=== PATIENT | male | born 2005 | race Caucasian/White ===

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

== ENCOUNTER → 2023-01-04 15:26 | Outpatient (BNVA) | payer OTHER, SELFPAY | PROVIDERS: Visit Provider Psychiatry & Neurology Psychiatry | DX: F20.81 Schizophreniform disorder (principal); Z79.899 Other long term (current) drug therapy | CPT/HCPCS: 85007; 85027 ==

== ENCOUNTER 2023-01-22 06:00 | Outpatient (RCR) | payer MEDICAID, SELFPAY | END 2023-02-20 23:59 | disposition home or self-care (01) | LOC: SST 06:00 | DX: F80.9 Developmental disorder of speech and language, unspecified (principal) | CPT/HCPCS: 92507 ==

== ENCOUNTER → 2023-02-09 08:45 | Outpatient (BNVA) | payer OTHER, SELFPAY | PROVIDERS: Visit Provider Psychiatry & Neurology Psychiatry | DX: F20.81 Schizophreniform disorder (principal); Z79.899 Other long term (current) drug therapy | CPT/HCPCS: 85007; 85027 ==

== ENCOUNTER 2023-02-21 06:00 | Outpatient (RCR) | payer MEDICAID, SELFPAY | END 2023-03-09 23:59 | disposition home or self-care (01) | LOC: SST 06:00 | PROVIDERS: PCP Family Medicine | DX: F84.0 Autistic disorder (principal) | CPT/HCPCS: 92507 ==

== ENCOUNTER → 2023-03-07 11:23 | Outpatient (BNVA) | payer MEDICAID, SELFPAY | PROVIDERS: PCP Family Medicine; Visit Provider Psychiatry & Neurology Psychiatry | DX: F20.81 Schizophreniform disorder (principal); Z79.899 Other long term (current) drug therapy | CPT/HCPCS: 85007; 85027 ==

== ENCOUNTER → 2023-04-07 10:08 | Outpatient (BNVA) | payer MEDICAID, SELFPAY | PROVIDERS: PCP Family Medicine; Visit Provider Psychiatry & Neurology Psychiatry | DX: F20.81 Schizophreniform disorder (principal); Z79.899 Other long term (current) drug therapy | CPT/HCPCS: 85007; 85027 ==

== ENCOUNTER → 2023-05-09 10:39 | Outpatient (BNVA) | payer MEDICAID, SELFPAY | PROVIDERS: PCP Family Medicine; Visit Provider Psychiatry & Neurology Psychiatry | DX: F20.81 Schizophreniform disorder (principal); Z79.899 Other long term (current) drug therapy | CPT/HCPCS: 85007; 85027 ==

== ENCOUNTER → 2023-06-14 10:04 | Outpatient (BNVA) | payer OTHER, SELFPAY | PROVIDERS: PCP Family Medicine; Visit Provider Psychiatry & Neurology Psychiatry | DX: F20.81 Schizophreniform disorder (principal); Z79.899 Other long term (current) drug therapy; F84.0 Autistic disorder; F79 Unspecified intellectual disabilities; G47.33 Obstructive sleep apnea (adult) (pediatric); F90.2 Attention-deficit hyperactivity disorder, combined type; F98.0 Enuresis not due to a substance or known physiological condition | CPT/HCPCS: 85007; 85027 ==

== ENCOUNTER → 2023-07-11 14:28 | Outpatient (BNVA) | payer OTHER, SELFPAY | PROVIDERS: PCP Family Medicine; Visit Provider Psychiatry & Neurology Psychiatry | DX: F20.81 Schizophreniform disorder (principal); Z79.899 Other long term (current) drug therapy | CPT/HCPCS: 85007; 85027 ==

== ENCOUNTER → 2023-08-15 11:17 | Outpatient (BNVA) | payer OTHER, SELFPAY | PROVIDERS: PCP Family Medicine; Visit Provider Psychiatry & Neurology Psychiatry | DX: F20.81 Schizophreniform disorder (principal); Z79.899 Other long term (current) drug therapy | CPT/HCPCS: 85007; 85027 ==

== ENCOUNTER → 2023-09-13 13:29 | Outpatient (BNVA) | payer OTHER, SELFPAY | PROVIDERS: PCP Family Medicine; Visit Provider Psychiatry & Neurology Psychiatry | DX: Z79.899 Other long term (current) drug therapy (principal); F98.0 Enuresis not due to a substance or known physiological condition; F84.0 Autistic disorder; F20.81 Schizophreniform disorder; F79 Unspecified intellectual disabilities; G47.33 Obstructive sleep apnea (adult) (pediatric); F90.2 Attention-deficit hyperactivity disorder, combined type | CPT/HCPCS: 84295; 85007; 85027 ==

== ENCOUNTER → 2023-10-12 08:17 | Outpatient (BNVA) | payer OTHER, SELFPAY | PROVIDERS: PCP Family Medicine; Visit Provider Psychiatry & Neurology Psychiatry | DX: F20.81 Schizophreniform disorder (principal); Z79.899 Other long term (current) drug therapy | CPT/HCPCS: 85007; 85027 ==

== ENCOUNTER → 2023-11-22 14:23 | Outpatient (BNVA) | payer MEDICAID, SELFPAY | PROVIDERS: PCP Family Medicine; Visit Provider Psychiatry & Neurology Psychiatry | DX: F20.81 Schizophreniform disorder (principal); Z79.899 Other long term (current) drug therapy | CPT/HCPCS: 85007; 85027 ==

== ENCOUNTER → 2023-12-13 13:31 | Outpatient (BNVA) | payer BC, SELFPAY | PROVIDERS: PCP Family Medicine; Visit Provider Psychiatry & Neurology Psychiatry | DX: F20.81 Schizophreniform disorder (principal); Z79.899 Other long term (current) drug therapy | CPT/HCPCS: 85007; 85027 ==

== ENCOUNTER → 2024-01-09 14:52 | Outpatient (BNVA) | payer BC, SELFPAY | PROVIDERS: PCP Family Medicine; Visit Provider Psychiatry & Neurology Psychiatry | DX: Z79.899 Other long term (current) drug therapy (principal); F20.81 Schizophreniform disorder | CPT/HCPCS: 80061; 83036; 85007; 85027 ==

== ENCOUNTER → 2024-02-07 15:52 | Outpatient (BNVA) | payer SELFPAY | PROVIDERS: PCP Family Medicine; Visit Provider Psychiatry & Neurology Psychiatry | DX: Z79.899 Other long term (current) drug therapy (principal) | CPT/HCPCS: 85007; 85027 ==

== ENCOUNTER → 2024-03-12 11:51 | Outpatient (BNVA) | payer MEDICAID, SELFPAY | PROVIDERS: PCP Family Medicine; Visit Provider Psychiatry & Neurology Psychiatry | DX: F20.81 Schizophreniform disorder (principal); F98.0 Enuresis not due to a substance or known physiological condition; F90.2 Attention-deficit hyperactivity disorder, combined type; Z79.899 Other long term (current) drug therapy; F84.0 Autistic disorder; G47.33 Obstructive sleep apnea (adult) (pediatric) | CPT/HCPCS: 85007; 85027 ==

== ENCOUNTER → 2024-04-10 10:50 | Outpatient (BNVA) | payer MEDICAID, SELFPAY | PROVIDERS: PCP Family Medicine; Visit Provider Psychiatry & Neurology Psychiatry | DX: F20.81 Schizophreniform disorder (principal); Z79.899 Other long term (current) drug therapy | CPT/HCPCS: 85007; 85027 ==

== ENCOUNTER → 2024-05-14 14:44 | Outpatient (BNVA) | payer MEDICAID, SELFPAY | PROVIDERS: PCP Family Medicine; Visit Provider Psychiatry & Neurology Psychiatry | DX: F20.81 Schizophreniform disorder (principal); Z79.899 Other long term (current) drug therapy | CPT/HCPCS: 85007; 85027 ==

== ENCOUNTER → 2024-06-15 15:57 | Outpatient (BNVA) | payer OTHER, SELFPAY | PROVIDERS: PCP Family Medicine; Visit Provider Psychiatry & Neurology Psychiatry | DX: F20.81 Schizophreniform disorder (principal) | CPT/HCPCS: 85007; 85027 ==

== ENCOUNTER → 2024-07-09 09:50 | Outpatient (BNVA) | payer MEDICAID, SELFPAY | PROVIDERS: PCP Family Medicine; Visit Provider Psychiatry & Neurology Psychiatry | DX: Z79.899 Other long term (current) drug therapy (principal); F20.81 Schizophreniform disorder | CPT/HCPCS: 85007; 85027 ==

== ENCOUNTER → 2024-08-07 11:39 | Outpatient (BNVA) | payer OTHER, SELFPAY | PROVIDERS: PCP Family Medicine; Visit Provider Psychiatry & Neurology Psychiatry | DX: F98.0 Enuresis not due to a substance or known physiological condition (principal); Z79.899 Other long term (current) drug therapy; F20.81 Schizophreniform disorder | CPT/HCPCS: 84295; 85007; 85027 ==

== ENCOUNTER → 2024-09-11 12:11 | Outpatient (BNVA) | payer MEDICAID, SELFPAY | PROVIDERS: PCP Family Medicine; Visit Provider Psychiatry & Neurology Psychiatry | DX: F20.81 Schizophreniform disorder (principal); Z79.899 Other long term (current) drug therapy | CPT/HCPCS: 85007; 85027 ==

== ENCOUNTER → 2024-10-09 14:59 | Outpatient (BNVA) | payer OTHER, SELFPAY | PROVIDERS: PCP Family Medicine; Visit Provider Psychiatry & Neurology Psychiatry | DX: F20.81 Schizophreniform disorder (principal); Z79.899 Other long term (current) drug therapy; F90.2 Attention-deficit hyperactivity disorder, combined type; F84.0 Autistic disorder; F79 Unspecified intellectual disabilities; F98.0 Enuresis not due to a substance or known physiological condition; G47.33 Obstructive sleep apnea (adult) (pediatric) | CPT/HCPCS: 85007; 85027 ==

== ENCOUNTER → 2024-11-06 14:28 | Outpatient (BNVA) | payer OTHER, SELFPAY | PROVIDERS: PCP Family Medicine; Visit Provider Psychiatry & Neurology Psychiatry | DX: F20.81 Schizophreniform disorder (principal); Z79.899 Other long term (current) drug therapy | CPT/HCPCS: 85007; 85027 ==

== ENCOUNTER → 2024-11-27 11:21 | Outpatient (BNVA) | payer SELFPAY | PROVIDERS: PCP Family Medicine; Visit Provider Psychiatry & Neurology Psychiatry | DX: F20.81 Schizophreniform disorder (principal); Z79.899 Other long term (current) drug therapy | CPT/HCPCS: 85007; 85027 ==

== ENCOUNTER → 2025-01-01 13:19 | Outpatient (BNVA) | payer OTHER, SELFPAY | PROVIDERS: PCP Family Medicine; Visit Provider Psychiatry & Neurology Psychiatry | DX: Z79.899 Other long term (current) drug therapy (principal); F20.81 Schizophreniform disorder | CPT/HCPCS: 80061; 83036; 84295; 85007; 85027 ==

== ENCOUNTER → 2025-02-05 13:27 | Outpatient (BNVA) | payer MEDICAID, SELFPAY | PROVIDERS: PCP Family Medicine; Visit Provider Psychiatry & Neurology Psychiatry | DX: F20.81 Schizophreniform disorder (principal); Z79.899 Other long term (current) drug therapy | CPT/HCPCS: 85007; 85027 ==

== ENCOUNTER 2025-02-27 13:38 | Emergency (ER) | payer MEDICAID, SELFPAY ==
[2025-02-27 13:40] VITALS: BP 104/68; PULSE 108; RESP 18; TEMP 36.6; O2SAT 96; BMI 29.0
--- NOTE | 2025-02-27 13:48 | XR_ITS ---
WS: [id number] XR hip LT 2-3V wo/w pel* [id number] REASON FOR EXAM: fall; one view pelvis too please FINDINGS: No fracture or focal bone lesion. 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 The acetabulum also demonstrates slight deformity with a somewhat flattened contour with decreased covering of the inferior femoral head. The right hip shows the same configuration of the femoral head and acetabulum. There is a small bone density projected between the femoral head and acetabular rim. Precise location and etiology not clear. Potentially a small fracture from the rim of the acetabulum or intra-articular loose body. This finding is not noted in the right hip. 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 Small bony body uncertain location and significance as above.
--- NOTE | 2025-02-27 13:55 | ED_ITS ---
HPI - Fall General: Chief Complaint: Fall Stated Complaint: fall-left hip pain Time Seen by Provider: 02/27/25 13:40 Source: patient and other (care staff) Mode of arrival: ambulatory Limitations: no limitations History of Present Illness: Patient is a 19-year-old male with a history of significant intellectual disability here with his care staff for evaluation of left hip pain following a fall while he was at [facility] earlier today. Staff states she was not with the patient during incident but got report when she picked him up. Staff at [facility] told her that patient was walking when he fell directly onto the left hip- witnessed fall. He has intermittently complained of pain. At times he will ambulate normally but other times with a small limp. No other injuries sustained during the fall. Patient is ambulatory at time of my examination. Patient is not able to provide much history given his disability. MD complaint: fall Onset (ago): hour(s) Fall from: standing Fall witnessed: yes, by bystander (by daycare staff) Place fall occurred: other ([facility] facility ) Loss of consciousness: None Prolonged down time: no Symptoms prior to fall: none Location of injury - extremities: Left: thigh (L hip) Associated symptoms-after fall: Reports no associated symptoms Related Data Home Medications ?Medication ?Instructions ?Recorded ?Confirmed bisacodyl 5 mg tablet,delayed 5 mg PO BID 08/25/2109/17 release (Dulcolax (bisacodyl)) acetaminophen 325 mg tablet 650 mg PO QID PRN 04/24/24 01/01/25 (Tylenol) Previous Rx's ?Medication ?Instructions ?Recorded ondansetron HCl 4 mg tablet 4 mg PO Q6H PRN nausea and 05/31/20 (Zofran) vomiting #7 tabs cetirizine 10 mg capsule 10 mg PO DAILY 90 days #90 c aps 11/04/20 guaifenesin 200 mg/5 mL oral liquid 400 mg (10 mL) PO Q6H PRN cough 7 06/24/21 days #473 mL magnesium oxide 400 mg (241.3 mg 400 mg PO DAILY 30 da ys #30 tabs 08/27/21 magnesium) tablet fluvoxamine 100 mg tablet See Rx Instructions .Route 0 07/09/24 .COMPLEX #60 tabs desmopressin 0.2 mg tablet See Rx Instructions .Route 07/17/24 .COMPLEX #60 tabs clonidine HCl 0.1 mg tablet See Rx Instructions .Route 08/03/24 .COMPLEX #90 tabs clozapine 100 mg tablet See Rx Instructions .Route 1 11/12/23 .COMPLEX #60 tabs fluvoxamine 50 mg tablet 50 mg PO DAILY #30 tabs 09/23 05/16 atomoxetine 100 mg capsule See Rx Instructions .Route 12/17/24 .COMPLEX #30 caps Allergies Allergy/AdvReac Type Severity Reaction Status Date / Time lorazepam Allergy Intermediate Disoriented Verified 02/27/25 13:43 ketamine Allergy ALGY-Difficulty Verified 02/27/25 13:43 Breathing Review of Systems General: Reports: Other (history limited due to cognitive/intellectual delay) Musc: Reports: joint pain (L hip) [facility] ED PFSH: Medical History Psychiatric care Schizophreniform dis, remission Unspecified intellectual disabilities Social History Smoking and tobacco/nicotine status: never used tobacco/nicotine Second hand smoke exposure: No Alcohol intake: never Substance/Drug Use: never Physical Exam Const: COMMON NORMALS: no acute distress, alert and well nourished GENERAL APPEARANCE: cooperative OTHER: at mental baseline per care staff; significant intellectual disability HENMT: COMMON NORMALS: normocephalic and atraumatic HEAD & SCALP: normal to inspection, normocephalic and atraumatic FACE & SINUS: normal facial exam Eye: GENERAL EYE: appearance normal, both eyes and all related structures Neck/C-Spine: COMMON NORMALS: full ROM CERVICAL SPINE: No Cervical spine tenderness Resp: COMMON NORMALS: normal respiratory effort and clear to auscultation bilaterally AUSCULTATION: clear to auscultation bilaterally Cardio: COMMON NORMALS: regular rate and regular rhythm RATE: regular rate RHYTHM: regular rhythm Back/Pelvis: COMMON NORMALS: thoracic and lumbar spine normal to inspection and no thoracic nor lumbar tenderness Extremity: COMMON NORMALS: normal to inspection, full ROM, capillary refill normal, no joint enlargement, no clubbing, cyanosis or edema, no calf tenderness and no pedal edema GENERAL: Yes normal exam except as noted LEFT LOWER EXTREMITY: Yes hip joint (mild discomfort L lateral hip joint) Left hip: Yes inspection (normal), Yes palpation (TTP lateral L hip), Yes ROM (normal) and Yes neurovascular exam (normal) Neuro: COMMON NORMALS: moves all extremities, no focal motor deficits and gait normal SENSORIUM/ORIENTATION: Yes alert Skin: TRAUMA: no lacerations or abrasions Course Vital Signs: Vital signs: Vital Signs Temperature 97.8 F 02/27/25 13:40 Pulse Rate 108 H 02/27/25 13:40 Respiratory Rate 18 02/27/25 13:40 Blood Pressure 104/68 02/27/25 13:40 Pulse Oximetry 96 02/27/25 13:40 Oxygen Delivery Me thod Room Air 02/27/25 13:40 MDM - Fall Medical Decision Making Patient's XR negative for acute fx. He is ambulatory here. Will be allowed discharge. Can follow up as needed through PCP. Medical Records I reviewed the patient's medical records. XR interpretation done by ED provider, pending radiology final review Discharge Plan Discharge Patient Disposition: Home Clinical Impression: Fall Qualifiers: Encounter type: initial encounter Qualified Code(s): W19.XXXA - Unspecified fall, initial encounter Contusion of left hip and thigh Qualifiers: Encounter type: initial encounter Qualified Code(s): S70.02XA - Contusion of left hip, initial encounter Condition: Stable Prescriptions: No Action bisacodyl [Dulcolax (bisacodyl)] 5 mg tablet,delayed release (DR/EC) 5 mg PO BID acetaminophen [Tylenol] 325 mg tablet 650 mg PO QID PRN fluvoxamine 50 mg tablet 50 mg PO DAILY Qty: 30 11RF Rx Instructions: Take with 200 mg dose of fluvoxamine for total daily dose of 250 mg daily. cetirizine 10 mg capsule 10 mg PO DAILY 90 Days Qty: 90 0RF guaifenesin 200 mg/5 mL liquid 400 mg PO Q6H PRN (Reason: cough) 7 Days Qty: 473 0RF magnesium oxide 400 mg (241.3 mg magnesium) tablet 400 mg PO DAILY 30 Days Qty: 30 2RF fluvoxamine 100 mg tablet See Rx Instructions .ROUTE .COMPLEX Qty: 60 11RF Dose Instruction: TAKE TWO TABLETS BY MOUTH EVERY NIGHT AT BEDTIME FOR OBSESSIONAL THINKING ASSOCIATED WITH AUTISM Rx Instructions: TAKE TWO TABLETS BY MOUTH EVERY NIGHT AT BEDTIME FOR OBSESSIONAL THINKING ASSOCIATED WITH AUTISM desmopressin 0.2 mg tablet See Rx Instructions .ROUTE .COMPLEX Qty: 60 11RF Dose Instruction: TAKE TWO TABLETS BY MOUTH AT BEDTIME Rx Instructions: TAKE TWO TABLETS BY MOUTH AT BEDTIME clonidine HCl 0.1 mg tablet See Rx Instructions .ROUTE .COMPLEX Qty: 90 11RF Dose Instruction: TAKE ONE TABLET BY MOUTH THREE TIMES DAILY FOR ADHD Rx Instructions: TAKE ONE TABLET BY MOUTH THREE TIMES DAILY FOR ADHD clozapine 100 mg tablet See Rx Instructions .ROUTE .COMPLEX Qty: 60 11RF Dose Instruction: TAKE ONE TABLET BY MOUTH TWICE DAILY FOR SCHIZOPHRENIFORM DISORDER Rx Instructions: TAKE ONE TABLET BY MOUTH TWICE DAILY FOR SCHIZOPHRENIFORM DISORDER atomoxetine 100 mg capsule See Rx Instructions .ROUTE .COMPLEX Qty: 30 11RF Dose Instruction: TAKE ONE CAPSULE BY MOUTH EVERY MORNING Rx Instructions: TAKE ONE CAPSULE BY MOUTH EVERY MORNING Zofran 4 mg tablet 4 mg PO Q6H PRN (Reason: nausea and vomiting) Qty: 7 0RF Discharge Orders: Discharge ED (Routine); Ordered 02/27/25 Ordered By: Keyla Martínez Referrals: Amaya Gomes MD [Primary Care Provider, Family Practice] Patient Instructions: Contusion Activity Restrictions/Additional Instructions: As we discussed, he can use Tylenol and/or Ibuprofen as needed as well as ice and/or heat. He can follow-up with primary care in 1 to 2 weeks if symptoms do not seem to be improving. He can continue to ambulate on the extremity as tolerated. Patient is cleared to return to [facility] tomorrow. Print Language: Urdu Coding Level of Care Code ED Heel Padder for Odalis Reyes
[2025-02-27 14:30] VITALS: BP 106/70; PULSE 103; O2SAT 97
== END 2025-02-27 14:31 | disposition home or self-care (01) ==
PROVIDERS: Emergency Provider Physician Assistant; PCP Family Medicine
DX: S70.02XA Contusion of left hip, initial encounter (principal); W19.XXXA Unspecified fall, initial encounter
CPT/HCPCS: 73502; 99283

== ENCOUNTER → 2025-03-05 10:53 | Outpatient (BNVA) | payer MEDICAID, SELFPAY | PROVIDERS: PCP Family Medicine; Visit Provider Psychiatry & Neurology Psychiatry | DX: F20.81 Schizophreniform disorder (principal); Z79.899 Other long term (current) drug therapy | CPT/HCPCS: 85007; 85027 ==

== ENCOUNTER → 2025-04-02 13:34 | Outpatient (BNVA) | payer OTHER, SELFPAY | PROVIDERS: PCP Family Medicine; Visit Provider Psychiatry & Neurology Psychiatry | DX: F20.81 Schizophreniform disorder (principal); Z79.899 Other long term (current) drug therapy | CPT/HCPCS: 85007; 85027 ==

== ENCOUNTER → 2025-04-30 11:42 | Outpatient (BNVA) | payer SELFPAY | PROVIDERS: PCP Family Medicine; Visit Provider Psychiatry & Neurology Psychiatry | DX: F20.81 Schizophreniform disorder (principal); Z79.899 Other long term (current) drug therapy | CPT/HCPCS: 85007; 85027 ==

== ENCOUNTER → 2025-06-04 15:16 | Outpatient (BNVA) | payer SELFPAY | PROVIDERS: PCP Family Medicine; Visit Provider Psychiatry & Neurology Psychiatry | DX: Z79.899 Other long term (current) drug therapy (principal) | CPT/HCPCS: 85007; 85027 ==

== ENCOUNTER → 2025-07-02 13:34 | Outpatient (BNVA) | payer SELFPAY | PROVIDERS: PCP Family Medicine; Visit Provider Psychiatry & Neurology Psychiatry | DX: F20.81 Schizophreniform disorder (principal); Z79.899 Other long term (current) drug therapy | CPT/HCPCS: 85007; 85027 ==

== ENCOUNTER → 2025-07-30 13:34 | Outpatient (BNVA) | payer SELFPAY | PROVIDERS: PCP Family Medicine; Visit Provider Psychiatry & Neurology Psychiatry | DX: F20.81 Schizophreniform disorder (principal); Z79.899 Other long term (current) drug therapy | CPT/HCPCS: 85007; 85027 ==

== ENCOUNTER → 2025-09-02 08:46 | Outpatient (BNVA) | payer OTHER, SELFPAY | PROVIDERS: PCP Family Medicine; Visit Provider Psychiatry & Neurology Psychiatry | DX: F20.81 Schizophreniform disorder (principal); Z79.899 Other long term (current) drug therapy | CPT/HCPCS: 85007; 85027 ==

== ENCOUNTER → 2025-10-01 13:48 | Outpatient (BNVA) | payer OTHER, SELFPAY | PROVIDERS: PCP Family Medicine; Visit Provider Psychiatry & Neurology Psychiatry | DX: F20.81 Schizophreniform disorder (principal); Z79.899 Other long term (current) drug therapy | CPT/HCPCS: 84295; 85007; 85027 ==